=== PATIENT | female | born 1990 | race Caucasian/White ===

== ENCOUNTER 2025-07-23 14:53 | Emergency (ER) | payer SELFPAY ==
--- NOTE | ~2025-07-23 | XR_ITS ---
EXAMINATION: XR chest 2V DATE: 07/23/2025 18:16 INDICATION: Chest pain. TECHNIQUE: Frontal and lateral views of the chest were obtained. COMPARISON: None. FINDINGS: Heart size is normal. Lungs are clear of acute processes. Ladi and mediastinum are normal. IMPRESSION: 1. No acute findings. Reviewed, dictated and finalized at location [facility] IMPRESSION: 1. No acute findings.
[2025-07-23 15:09] VITALS: BP 124/77; PULSE 78; RESP 14; TEMP 36.9; O2SAT 100
--- NOTE | 2025-07-23 15:11 | ECG_ITS ---
Test Date: 2025-07-23 15:19:55 Measurements Intervals [place] Rate: 77 P: 52 MS: 119 QRS: 38 QRSD: 73 T: 0 QT: 375 QTc: 425 Interpretive Statements SINUS RHYTHM WITH SHORT MS INTERVAL BORDERLINE ST-T WAVE ABNORMALITY- INFERIOR LEADS BASELINE ARTIFACT- I, II, III, AVR, AVL ,AVF, V1, V4-V6 BORDERLINE ECG No previous ECG available for comparison Electronically Signed On 07-23-2025 17:17:47 OUTPATIENT ADMITTING CLERK by Crispin Uriarte D.O.
[2025-07-23 17:16] VITALS: BP 110/52; PULSE 70; RESP 16; TEMP 36.8; O2SAT 100
[2025-07-23 18:32] LABS: Hematocrit 41.6 % (37.0-47.0); Hemoglobin 13.9 g/dL (12.0-15.0); Immature Granulocyte Percent A 0.3 % (0-0.5); Lymphocytes Absolute Auto 2.31 K/mm3 (0.9-3.2); Mean Corpuscular HGB Conc 33.4 g/dl (32-36); Mean Corpuscular Hemoglobin 30.1 pg (26-34); Mean Corpuscular Volume 90.0 fl (80-100); Nucleated Red Blood Cells Absolute Auto 0.000 K/mm3 (0.0-0.012); Nucleated Red Blood Cells Perc 0.0 % (0.0-0.2); Platelet Count Result 325 k/mm3 (150-375); Red Blood Count 4.62 M/mm3 (4.2-5.4); White Blood Count 11.5 K/mm3 (4.5-10.0)
--- OUTSIDE RECORDS SUMMARY | 2025-07-23 18:37 | XMS_ITS | Data Portability ---
Author Organization [employer], Main Office Address [address] [place] [address] Assessment Encounter Date Assessment Date Assessment LastModified by Organization Details LastModified Time 02/25/2023 02/25/2023 [employer]- FLIGHT HOSTESS- Chriss Call office if worse, ER if life threatening illness RTC 6 months and PRN She voices understanding of plan and agrees Not available 02/25/2023 17:14:00 Plan of Treatment Reminders Order Date Submit Date Provider Last Modified By Organization Details Last Modified Time Details Appointments None recorded. Lab None recorded. Referral None recorded. Procedures None recorded. Surgeries None recorded. Imaging None recorded. Medication Orders levothyroxi ne 75 mcg tablet 2022 023 [id number], [address] , [place], [place], [id number], 3 15:15:05 Patient TargetsNo targets recorded. Patient InstructionsNo instructions recorded. Reason for Referral None Reported. Results Created Date Observation Date Name Description Value Unit Range Abnormal Flag Note LastModifiedBy Organization Detail LastModifiedTime Result Notes None recorded. Problems Name Problem SNOMED Code Status Onset Date Resolution Date Notes Provider Name and Address Organization Details Recorded Time Anemia 581494358 Active 2022 Deidra finney, [employer] 3 16:09:03 Hypothyroidism 45536504 Active 2022 Deidra finney, [employer] 3 16:09:37 Dysmenorrhea 454571864 Active 2022 LAURA Pinzon [address] [place] [address], [facility] [address], [place], [address], [facility] [employer] [facility] 3 20:06:12 Hypocalcemia 3809959 Active 2022 LAURA Pinzon [address] [facility], [facility] [address], [place], [address], [facility] [employer] [facility] [employer] [facility] 3 20:06:40 Iron deficiency 67805529 Active 2022 LAURA Pinzon [address] [facility], [facility] [address], [place], [address], [facility] [employer] [facility] 3 20:06:49 Fatigue 14274525 Active 2022 LAURA Pinzon [address] [facility], [facility] [address], [place], [address], [facility] [employer] [facility] 3 17:14:07 Problem Notes None recorded. Medical Equipment None Reported. Allergies No known drug allergies Medications Name Sig Start Date Stop Date Status Note LastModified by Organization Details LastModified Time levothyroxi ne 75 mcg tablet TAKE 1 TABLET BY MOUTH DAILY IN THE MORNING WITH WATER AND ON AN EMPTY STOMACH active Not Available Not Available No t Available levothyroxi ne 100 mcg tablet TAKE 1 TABLET BY MOUTH EVERY DAY IN THE MORNING active Not Available Not Available No t Available methylpredn isolone 4 mg tablets in a dose pack FOLLOW PACKAGE DIRECTION S 09/27 completed Not Available Not Available Not Available FeroSul 325 mg (65 mg iron) tablet TAKE 1 TABLET TWICE A DAY BY MOUTH active Not Available Not Available No t Available Annovera 0.15 mg-0.013 mg/24 hr vaginal ring INSERT 1 RING VAGINALLY FOR 3 WEEKS AND THEN OFF FOR 1 WEEK active Not Available Not Available No t Available Vitals Date Recorded Body mass index (BMI) Body height Oxygen saturation Heart rate Body temperature Body weight Systolic And Diastolic Provider Name and Address Organization Details Last Updated DateTime 3 22 kg/m2 165.1 cm 98 % 72 /min 98 [degF] 25418.1 9 g 122/78 mm[Hg] Not Available [employer] 3 23:58:07 Date Recorded Oxygen saturation Heart rate Body temperature Body weight Systolic And Diastolic Provider Name and Address Organization Details Last Updated DateTime 2 97 % 76 /min 98.4 [degF] 54285.9 7 g 116/78 mm[Hg] Not Available [facility] 3 23:58:06 Date Recorded Body height Body mass index (BMI) Body weight Body temperature Heart rate Oxygen saturation Systolic And Diastolic Provider Name and Address Organization Details Last Updated DateTime 3 165.1 cm 23.3 kg/m2 13764.9 3 g 97.7 [degF] 62 /min 98 % 114/74 mm[Hg] LUPE Kaur - S [place] [employer] [facility] 3 15:00:26 Date Recorded Oxygen saturation Heart rate Body temperature Body weight Systolic And Diastolic Provider Name and Address Organization Details Last Updated DateTime 2 98 % 66 /min 97.7 [degF] 68365.1 9 g 118/72 mm[Hg] Not Available [facility] 3 23:58:07 Date Recorded Body mass index (BMI) Body height Oxygen saturation Heart rate Body temperature Body weight Systolic And Diastolic Provider Name and Address Organization Details Last Updated DateTime 2 22.3 kg/m2 165.1 cm 97 % 78 /min 98.1 [degF] 43213.3 8 g 116/74 mm[Hg] Not Available [facility] 3 23:58:07 Social History Question Answer Notes LastModified by Organizat ion Details LastModified Time Tobacco Smoking Status Never Smoker Not Available [facility] 10/01/2022 23:57:22 Do You Wear A Helmet When Biking? No [id number] Information not available 10/01/2022 What Is Your Level Of Caffeine Consumption? Moderate MIGRATION.[id number] Information not available 10/01/2022 In The 14 Days Before Symptom Onset, Have You Had Close Contact With A Laboratory-confirm ed COVID-19 While That Case Was Ill? No [id number] Information not available 10/01/2022 In The 14 Days Before Symptom Onset, Have You Had Close Contact With A Person Who Is Under Investigation For COVID-19 While That Person Was Ill? No [id number].[id number] Information not available 10/01/2022 What Type Of Diet Are You Following? VEGETARIAN MIGRATION.[id number] Information not available 10/01/2022 What Is The Highest Grade Or Level Of School You Have Completed Or The Highest Degree You Have Received? [id number] MIGRATION.[id number] Information not available 10/01/2022 Have There Been Any Changes To Your Family Or Social Situation? No MIGRATION.[id number] Information not available 10/01/2022 What Is The Fluoride Status Of Your Home? Unknown MIGRATION.[id number] Information not available 10/01/2022 Are There Any Guns Present In Your Home? No MIGRATION.[id number] 3724 Information not available 10/01/2022 Do You Use Insect Repellent Routinely? No MIGRATION.[id number] 2602 Information not available 10/01/2022 Where Do You Live? Apartment MIGRATION .[id number] Information not available 10/01/2022 What Was The Date Of Your Most Recent Tobacco Screening? 02/25/2023 [email or web address] Information not available 02/25/2023 Do You Have Any Pets? No [id number].[id number] Information not available 10/01/2022 What Is Your Relationship Status? Single MIGRATION.[id number] Information not available 10/01/2022 Do You Use Your Seat Belt Or Car Seat Routinely? Yes [id number].[id number] Information not available 10/01/2022 Do You Have Smoke And Carbon Monoxide Detectors In Your Home? Yes MIGRATION.[id number] 9626 Information not available 10/01/2022 Are You Passively Exposed To Smoke? No MIGRATION.[id number] 1472 Information not available 10/01/2022 Are There Any Smokers In Your House? No MIGRATION.006075 0685 Information not available 10/01/2022 Do You Use Sunscreen Routinely? No MIGRATION.[id number] 2378 Information not available 10/01/2022 Have You Recently Traveled Abroad? No MIGRATION.[id number] 1437 Information not available 10/01/2022 Sex: Unknown Functional Status Question Answer Note LastModified by Organizat ion Details LastModified Time Do you use any illicit or recreational drugs? No [id number].[id number] Information not available 10/01/2022 Do you or have you ever used any other forms of tobacco or nicotine? No MIGRATION.[id number] 7591 Information not available 10/01/2022 What is your level of alcohol consumption? 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 Moderate MIGRATION.[id number] 1708 Information not available 10/01/2022 Mental Status Question Answer Note LastModified by Organizat ion Details LastModified Time Do you feel stressed (tense, restless, nervous, or anxious, or unable to sleep at night)? [id number] [id number] Information not available 10/01/2022 Family History Nothing Reported. Medical History Condition Response NERVE DISEASE N BLINDNESS N RHEUMATIC FEVER N KIDNEY STONES N BLADDER PROBLEMS N MRSA N OTHER # 1 N POLIO N LUNG DISEASE/DISORDER N HISTORY OF DRUG ABUSE N COPD N RADIATION / CHEMOTHERAPY N Other # 2 N BLOOD DISEASES N EAR OR HEARING PROBLEMS N MUMPS N SHINGLES N BOWEL PROBLEMS N DEPRESSION (INCLUDING POST ) N STROKE/TIA N ULCERS N BENIGN PROSTATIC HYPERPLASIA N MEASLES N HYPOTENSION N MYOCARDIAL INFARCTION N OBESITY N GERD/NAUSEA N ANEURYSM N URINARY/BLADDER/KIDNEY PROBLEMS N CORONARY ARTERY DISEASE (CAD) N ADDICTION CONCERNS N ENDOMETRIOSIS N Impotence N USE OF BLOOD THINNERS N SKIN PROBLEMS N GASTROINTESTINAL DISORDER N PERIPHERAL VASCULAR DISEASE N MUSCLE,JOINT OR BONE PROBLEMS N GASTROINTESTINAL BLEEDING N BLOOD CLOTS N ASTHMA N CATARACTS N ERECTILE DYSFUNCTION N VARICOSITIES N GI PROBLEMS N Low Testosterone N INFERTILITY N AIDS/HIV N CHEMOTHERAPY / RADIATION N LIVER DISEASE N MALE HYPOGONADISM N HYPERTENSION N Deficiency N TOURETTE'S N ANXIETY DISORDER N BLOOD TRANSFUSION N ANEMIA/BLOOD DISORDER N CHRONIC EAR INFECTIONS N BRONCHITIS N TUBERCULOSIS N GLAUCOMA N FOOT PROBLEM N DIVERTICULITIS N CHICKENPOX N SLEEP APNEA N INFECTIOUS DISEASE N HEART ARRHYTHMIA N PROSTATE N INSOMNIA N HIGH CHOLESTEROL / HYPERLIPIDEMIA N HYPERTHYROIDISM N EYE PROBLEMS N EDEMA N CHRONIC PAIN SYNDROME N HYPOTHYROIDISM Y CAROTID BLOCKAGE N CONSTIPATION N BACK / NECK PROBLEMS N HAVE YOU BEEN HOSPITALIZED OR SEEN IN [facility] IN THE PAST YEAR ? N ATHEROSCLEROSIS N BREAST PROBLEMS N DIALYSIS N ECZEMA N OSTEOPOROSIS N ARTHRITIS N NO SIGNIFICANT PAST MEDICAL HISTORY N APPENDICITIS N DIABETES, TYPE N BAD TEETH N ENT N HEARTBURN / REFLUX N AUTISM SPECTRUM DISORDER (ASD) N HEPATITIS / LIVER DISEASE N GOUT N SLEEP DISORDER N ALZHEIMER'S DISEASE N Brain Problems N HERPES N DEMENTIA N HEADACHES/MIGRAINES N SEIZURES/EPILEPSY N VASCULAR DISEASE N PACEMAKER N Blood Disorder N DIZZINESS N HEART DISEASE/HEART PROBLEMS N KIDNEY DISEASE N MULTIPLE SCLEROSIS N CARDIAC ARRHYTHMIA N CANCER: SPECIFY N ATRIAL FIBRILLATION N Gall Stones N PULMONARY EMBOLISM N AUTOIMMUNE DISEASE N Gynecological HistoryNo gynecological history recorded. Obstetrics History GPAL:G 0 P 0 0 0 0 Immunizations Vaccine Type Date Status Note Provider Nam e and Address Organization Details Recorded Time COVID-19, mRNA, LNP-S, PF, 100 mcg/0.5mL dose or 50 mcg/0.25mL dose 05/06/2021 completed Not Available [facility] 3 00:01:13 COVID-19, mRNA, LNP-S, PF, 100 mcg/0.5mL dose or 50 mcg/0.25mL dose 04/09/2021 completed Not Available [facility] 3 00:01:13 Past Encounters Encounter ID Performer Location Encounter Start Date Encounter Closed Date Diagnosis/Indication Diagnosis SNOMED-CT Code Diagnosis ICD10 Code Diagnosis IMO Codes Diagnosis Note [id number] Alicia gibbs MD [facility] Internal Med [address], [address] [address] 09/27/2021 00:00:00 09/27/2021 15:23:21 [id number] Alicia gibbs MD [facility] Internal Med [facility] grover [address] [place] [address] [place] [address] 03/26/2022 00:00:00 03/26/2022 17:03:36 [id number] MD NANCI Godfrey[facility] Med James grover [address] [place] [address] [place] [address] 04/23/2022 00:00:00 04/23/2022 14:32:59 [id number] MD SANJUANA Godfrey_[facility] Internal Med James grover [address] [place] [address] [place] [address] 2022 00:00:00 2022 16:55:11 [id number] MD NANCI Godfrey_[facility] Internal Med James grover [address] [place] [address] [place] [address] 02/25/2023 14:48:15 02/25/2023 15:17:58 Hypothyroidism 32681420 E03.9 on levothyrox ineencoura ged her to get her labs done as I can't know if she needs dose adjustment without that informatio n Dysmenorrhea [id number] N 94.6 follows [facility]- was put on vaginal ring, but hasn't been using itencourag ed her to speak with FLIGHT HOSTESS to see about another method if she doesn't like this one Anemia 323194255 D64.9 normalized on last labs 04/2022 Hypocalcemia 2865515 E83 .51 normalized on last labs 04/2022 Iron deficiency 96986605 E61.1 on OTC MVI with iron Fatigue 58025634 R53.83 get labs- has orders Health Concerns Section Related Observation LastModified by Organization Detai ls LastModified Time None Recorded Concern Status LastModified by Organization Details LastModified Time None Recorded Advance Directives Directive None Recorded Payers Insurance Date Sequence Insurance Name Policy Number Policy Pelaez Covered Member ID Pelaez Member ID Guarantor Name 08/30/2023 1 [facility] [id number] Jeanine Antony [id number] Jeanine Antony Notes Date Note Type Note Provider Name and Address Organization Details Recorded Time 02/25/2023 text/html Jeanine presents today for follow-up. She complains today of fatigue. She feels like her thyroid is off. However she still has not gotten the labs done that I ordered. She does have her orders but has not been able to get those done. She tells me she plans to do those today. She also complains of painful periods. She did see rack puncher who started her on control (vaginal ring). However she has not been using it. Adelia [place], [employer] [address], [facility] [address], [place], [address], [facility] [employer] 02/25/2023 17:15:11 OBGyn Episode No OBEpisode recorded.
[2025-07-23 18:47] LABS: INR 1.0; Prothrombin Time 12.9 Seconds (11.1-14.7)
[2025-07-23 18:48] LABS: Alanine Aminotransferase 20 U/L (6-35); Albumin Level 4.4 g/dL (3.5-5.1); Alkaline Phosphatase 44 U/L (38-126); Anion Gap 6 mmol/L (4-12); Aspartate Amino Transferase 34 U/L (14-36); Bilirubin,Total 0.5 mg/dL (0.2-1.3); Blood Urea Nitrogen 8 mg/dL (7-17); Calcium 8.8 mg/dL (8.4-10.2); Carbon Dioxide 28 mmol/L (22-30); Chloride 103 mmol/L (98-107); Estimated CRCL calculation 111 ml/min; Estimated Glomerular Filt Rate > 60; Glucose 92 mg/dL (65-110); Lipase 99 U/L (23-300); Partial Thromboplastin Time 27.5 Seconds (22.3-36.8); Potassium 3.6 mmol/L (3.4-5.0); Sodium 137 mmol/L (137-145); Total Protein 7.4 g/dL (6.3-8.2)
[2025-07-23 19:00] LABS: Troponin I < 0.012 ng/mL (0.000-0.034)
--- NOTE | 2025-07-23 19:09 | ED_ITS ---
HPI - General Adult General Chief complaint: Unspecified Stated complaint: cp Time Seen by Provider: 07/23/25 18:04 Source: patient Mode of arrival: ambulatory Limitations: no limitations History of Present Illness HPI narrative: This is a 34-year-old female that presents emergency department for chest pain. Ongoing intermittently over the last several months. Denies fever, cough, shortness of breath, lower extremity edema. Related Data Allergies Allergy/AdvReac Type Severity Reaction Status Date / Time No Known Allergies Allergy Verified 07/23/25 22:06 Review of Systems 2 Review of Systems: All systems reviewed & are unremarkable except as noted in HPI and below Exam 2 Narrative: GENERAL: Well-appearing, well-nourished, and in no acute distress. HEAD: Normocephalic, atraumatic. EYES: EOMI. ENT: Nares clear, no rhinorrhea or epistaxis. Mucous membranes moist. Oropharynx without tonsillar hypertrophy exudate or other lesions CHEST: Clear to auscultation. No respiratory distress. No wheezes rales or rhonchi HEART: Regular rate and rhythm. No murmur heard. Normal peripheral pulses. EXTREMITIES: Normal range of motion. No edema. SKIN: Warm, dry, no rash. NEURO: No focal deficits. Alert and oriented x3. PSYCH: Normal mood and affect Course Vital Signs Vital signs: Vital Signs Temperature 98.5 F 07/23/25 15:09 Pulse Rate 78 07/23/25 15:09 Respiratory Rate 14 07/23/25 15:09 Blood Pressure 124/77 07/23/25 15:09 Pulse Oximetry 100 07/23/25 15:09 Oxygen Delivery Room Air 07/23/25 15:09 Temperature 98.2 F 07/23/25 22:18 Pulse Rate 56 L 07/23/25 22:18 Respiratory Rate 18 07/23/25 22:18 Blood Pressure 102/73 07/23/25 22:18 Pulse Oximetry 100 07/23/25 22:18 Oxygen Delivery Room Air 07/23/25 15:09 [facility] Narrative Medical decision making narrative: Patient presents emergency department for chest pain. Reports this has been ongoing intermittently over the last several months. She is afebrile and nontoxic appearing her vitals are stable. CBC and metabolic panel without concerning findings. EKG without acute ST changes, baseline troponin is negative. D-dimer is not elevated. Chest x-ray without acute cardiopulmonary abnormality. Patient's TSH is elevated. Free T4 is a little low. She does report known history of hypothyroidism, reports she has been out of her medication for at least a year. She used to take 75 mcg daily. Will restart her medication and instructed on close follow-up with PCP Differential Diagnosis Differential Diagnosis: Muscle strain, anxiety, pleurisy, PE, pneumonia, medication noncompliance, hypothyroidism Lab Data MDM Lab Attestation statement: I personally reviewed the patient's lab results. 07/23/25 18:25 07/23/25 18:25 Labs: Lab Results 07/23/25 07/23/25 07/23/25 Range/Units 18:25 18:25 21:19 WBC 11.5 H (4.5-10.0) K/mm3 RBC 4.62 (4.2-5.4) M/mm3 Hgb 13.9 (12.0-15.0) g/dL Hct 41.6 (37.0-47.0) % MCV 90.0 (80-100) fl MCH 30.1 (26-34) pg MCHC 33.4 (32-36) g/dl RDW 12.8 (11.5-14.5) % Plt Count 325 (150-375) k/mm3 MPV 9.2 (7.4-10.4) fl Immature Gran % (Auto) 0.3 (0-0.5) % Neut % (Auto) 70.9 (45.5-73.1) % Lymph % (Auto) 20.2 (18.3-44.2) % [place] % (Auto) 6.2 (2.6-8.5) % Eos % (Auto) 1.5 (0-4.4) % Baso % (Auto) 0.9 (0.2-1.2) % Lymph # (Auto) 2.31 (0.9-3.2) K/mm3 [place] # (Auto) 0.7 H (0.1-0.6) K/mm3 Eos # (Auto) 0.2 (0-0.3) K/mm3 Baso # (Auto) 0.1 (0.0-0.1) K/mm3 Abs Immat Gran (auto) 0.03 (0.00-0.031) K/mm3 Absolute Neuts (auto) 8.1 H (1.3-6.7) K/mm3 Absolute Nucleated RBC 0.000 (0.0-0.012) K/mm3 Nucleated RBC % 0.0 (0.0-0.2) % PT 12.9 (11.1-14.7) Seconds INR 1.0 APTT 27.5 (22.3-36.8) Seconds D-Dimer < 0.27 Cancelled (<0.48) ug/mL Sodium 137 (137-145) mmol/L Potassium 3.6 (3.4-5.0) mmol/L Chloride 103 (98-107) mmol/L Carbon Dioxide 28 (22-30) mmol/L Anion Gap 6 (4-12) mmol/L BUN 8 (7-17) mg/dL Creatinine 0.53 L (0.7-1.0) mg/dL Estim Creat Clear Calc 111 ml/min Estimated GFR > 60 (59 - ) Glucose 92 (65-110) mg/dL Calcium 8.8 (8.4-10.2) mg/dL Total Bilirubin 0.5 (0.2-1.3) mg/dL AST 34 (14-36) U/L ALT 20 (6-35) U/L Alkaline Phosphatase 44 (38-126) U/L Troponin I < 0.012 (0.000-0.034) ng/mL Total Protein 7.4 (6.3-8.2) g/dL Albumin 4.4 (3.5-5.1) g/dL Lipase 99 (23-300) U/L TSH (Reflex) 17.500 H (0.465-4.68) uIU/mL Free T4 0.62 L (0.78-2.19) ng/dL Urine Color (Yellow) Urine Appearance (Clear) Urine pH (5.0-9.0) Ur Specific [place] (1.001-1.035) Urine Protein (Negative) mg/dL Urine Glucose (UA) (Negative) mg/dL Urine Ketones (Negative) mg/dL Ur Blood (Man) (Negative) Urine Nitrate (Negative) Urine Bilirubin (Negative) Urine Urobilinogen (<2.0) mg/dL Leukocyte Esterase Rfl (Negative) ARACELI/UL Urine RBC (0-2) /hpf Urine WBC (0-3) /hpf Ur Squamous Epith Cells (Few) /hpf Urine Bacteria /hpf Urine Casts POC Urine HCG, Qual (Negative) Urine Opiates Screen Negative (Negative) Urine Methadone Screen Negative (Negative) Ur Barbiturates Screen Negative (Negative) Ur Phencyclidine Scrn Negative (Negative) Ur Amphetamine Screen Negative (Negative) U Benzodiazepines Scrn Negative (Negative) Urine Cocaine Screen Negative (Negative) U Cannabinoids Screen Negative (Negative) 07/23/25 07/23/25 Range/Units 21:24 21:25 WBC (4.5-10.0) K/mm3 RBC (4.2-5.4) M/mm3 Hgb (12.0-15.0) g/dL Hct (37.0-47.0) % MCV (80-100) fl MCH (26-34) pg MCHC (32-36) g/dl RDW (11.5-14.5) % Plt Count (150-375) k/mm3 MPV (7.4-10.4) fl Immature Gran % (Auto) (0-0.5) % Neut % (Auto) (45.5-73.1) % Lymph % (Auto) (18.3-44.2) % [place] % (Auto) (2.6-8.5) % Eos % (Auto) (0-4.4) % Baso % (Auto) (0.2-1.2) % Lymph # (Auto) (0.9-3.2) K/mm3 [place] # (Auto) (0.1-0.6) K/mm3 Eos # (Auto) (0-0.3) K/mm3 Baso # (Auto) (0.0-0.1) K/mm3 Abs Immat Gran (auto) (0.00-0.031) K/mm3 Absolute Neuts (auto) (1.3-6.7) K/mm3 Absolute Nucleated RBC (0.0-0.012) K/mm3 Nucleated RBC % (0.0-0.2) % PT (11.1-14.7) Seconds INR APTT (22.3-36.8) Seconds D-Dimer (<0.48) ug/mL Sodium (137-145) mmol/L Potassium (3.4-5.0) mmol/L Chloride (98-107) mmol/L Carbon Dioxide (22-30) mmol/L Anion Gap (4-12) mmol/L BUN (7-17) mg/dL Creatinine (0.7-1.0) mg/dL Estim Creat Clear Calc ml/min Estimated GFR (59 - ) Glucose (65-110) mg/dL Calcium (8.4-10.2) mg/dL Total Bilirubin (0.2-1.3) mg/dL AST (14-36) U/L ALT (6-35) U/L Alkaline Phosphatase (38-126) U/L Troponin I (0.000-0.034) ng/mL Total Protein (6.3-8.2) g/dL Albumin (3.5-5.1) g/dL Lipase (23-300) U/L TSH (Reflex) (0.465-4.68) uIU/mL Free T4 (0.78-2.19) ng/dL Urine Color Yellow (Yellow) Urine Appearance Cloudy H (Clear) Urine pH 7.5 (5.0-9.0) Ur Specific [place] 1.010 (1.001-1.035) Urine Protein Negative (Negative) mg/dL Urine Glucose (UA) Negative (Negative) mg/dL Urine Ketones Trace H (Negative) mg/dL Ur Blood (Man) Negative (Negative) Urine Nitrate Negative (Negative) Urine Bilirubin Negative (Negative) Urine Urobilinogen 0.2 (<2.0) mg/dL Leukocyte Esterase Rfl Negative (Negative) ARACELI/UL Urine RBC 0-2 (0-2) /hpf Urine WBC 0-5 (0-3) /hpf Ur Squamous Epith Cells Moderate (Few) /hpf Urine Bacteria 1+ H /hpf Urine Casts 0-2 POC Urine HCG, Qual Negative (Negative) Urine Opiates Screen (Negative) Urine Methadone Screen (Negative) Ur Barbiturates Screen (Negative) Ur Phencyclidine Scrn (Negative) Ur Amphetamine Screen (Negative) U Benzodiazepines Scrn (Negative) Urine Cocaine Screen (Negative) U Cannabinoids Screen (Negative) Imaging Data Radiologist's impression: ITS Impressions Chest X-Ray 07/23/25 18:17 IMPRESSION: 1. No acute findings. Critical Care Time Critical Care Time Critical Care Time: No Discharge Plan Discharge Clinical Impression: Hypothyroidism Qualifiers: Hypothyroidism type: unspecified Qualified Code(s): E03.9 - Hypothyroidism, unspecified Chest pain Qualifiers: Chest pain type: unspecified Qualified Code(s): R07.9 - Chest pain, unspecified Patient Disposition: Home Condition: Stable Instructions: Chest Pain (ED), Hypothyroidism (ED) Additional Instructions: Return to the emergency department if you experience fever, chest pain, shortness of breath, abdominal pain with nausea and vomiting, weakness, numbness, or any other symptoms that are concerning to you. Take levothyroxine as prescribed Follow up with primary care doctor Patient Language: Colombian Prescriptions: New levothyroxine 75 mcg capsule 75 mcg PO DAILY 30 Days Qty: 30 0RF Follow-up/Referrals: PHYSICIAN,HAND SHOES SEWER [Primary Care Provider, Internal Medicine] Cesar Iraheta MD [Physician, Family Practice] Quality HEART score for chest pain patients History: slightly suspicious ECG: normal Age: < or = to 45 years Risk factors: no risk factors known Troponin: < or = to 1x normal limit Heart score: 0
[2025-07-23 19:21] LABS: Thyroid Stimulating Hormone Reflex 17.500 uIU/mL (0.465-4.68)
--- NOTE | 2025-07-23 19:22 | PC.NURSE ---
Report received from FRANCIA Delvalle. Assumed care of patient at this time.
[2025-07-23 19:23] VITALS: BP 114/94; PULSE 62; RESP 17; O2SAT 100
[2025-07-23 19:48] LABS: Free T4 Free Thyroxine Reflex 0.62 ng/dL (0.78-2.19)
[2025-07-23 21:23] VITALS: BP 103/75; PULSE 60; RESP 18; O2SAT 97
[2025-07-23 21:27] LABS: BEDSIDEPREGUCG Negative (Negative)
[2025-07-23 21:40] LABS: Add Urine Microscopic? YES; Appearance Urine Cloudy (Clear); Glucose Urine UA Negative (Negative); Leukocyte Esterase Ur Negative LEU/UL (Negative); Nitrate Urine Negative (Negative); Non Pathogenic Casts 0-2; Specific Grav Ur 1.010 (1.001-1.035)
[2025-07-23 21:55] LABS: Cannabinoid Screen Urine Negative (Negative)
[2025-07-23 22:18] VITALS: BP 102/73; PULSE 56; RESP 18; TEMP 36.8; O2SAT 100
== END 2025-07-23 22:20 | disposition home or self-care (01) ==
PROVIDERS: Family Medicine; Emergency Provider Physician Assistant
DX: R07.9 Chest pain, unspecified (principal); E03.9 Hypothyroidism, unspecified
CPT/HCPCS: 36415; 71046; 80053; 80307; 81001; 81025; 83690; 84439; 84443; 84484; 85025; 85380; 85610; 85730; 93005; 99284